=== PATIENT | male | born 1960 ===

== ENCOUNTER 2023-08-11 07:00 | Inpatient (IN) | payer OTHER ==
[2023-08-11] MEDS ORDERED: SYNTHROID200 MCG PO (08:48)
[2023-08-11] MEDS ORDERED: PROSCAR5 MG PO (08:49)
[2023-08-11] MEDS ORDERED: IBERSARTAN (08:49)
[2023-08-11] MEDS ORDERED: [UNRECOGNIZED DRUG - OTHER] (08:50)
[2023-08-11] MEDS ORDERED: LIPITOR20 MG PO (08:50)
[2023-08-11] MEDS ORDERED: CARDURA1 MG PO (08:51)
[2023-08-11] MEDS ORDERED: KLONOPIN 2MG (08:51)
[2023-08-11] MEDS ORDERED: MELOXICAM15 MG PO (08:51)
[2023-08-11 09:01] LABS: HEMATOCRIT 45.3 % (39.0-48.0); HEMOGLOBIN 15.7 g/dL (13-16.00); MEAN CELL VOLUME 89.1 fL (80.0-100.00); MEAN CORPUSCULAR HGB CONC 34.8 g/dl (32.0-36.0); PLATELET COUNT 181 K/uL (150-450); RED BLOOD COUNT 5.08 M/uL (4.00-6.00); RED CELL DISTRIBUTION WIDTH 13.8 % (11.5-14.5)
[2023-08-11 09:26] LABS: URINE APPEARANCE Clear; URINE BILIRRUBIN Negative (NEGATIVE); URINE BLOOD Trace; URINE COLOR Yellow; URINE GLUCOSE Negative (NEGATIVE); URINE LEUKOCYTE Negative; URINE NITRATE Negative; URINE PROTEIN Negative (NEGATIVE); URINE UROBILINOGEN 0.2 E.U./dl
[2023-08-11 09:26] LABS: CALCIUM 9.4 mg/dL (8.5-10.1); CREATININE SERUM 0.94 mg/dL (0.70-1.30); GFR 81.32; POTASSIUM 3.95 mEq/L (3.5-5.1)
[2023-08-11 09:27] LABS: URINE WBC 3.2 uL (0.0-23.2)
[2023-08-11 09:30] LABS: URINE BACTERIA 1.2 uL (0.0-1933); URINE EPITHELIAL CELLS 0.4 uL (0.0-38.8)
[2023-08-11 09:32] LABS: INR 1.06; PARTIAL THROMBOPLASTIN TIME 27.1 SECONDS (22.0-34.0); PROTHROMBIN TIME 11.1 SECONDS (9.0-11.5)
[2023-08-23] MEDS ORDERED: ENOXAPARIN SODIUM 40 MG/0.4 ML SYRINGE SUBCUTANEO ONE ×2 (07:20→10:00)
[2023-08-23] MEDS ORDERED: CEFAZOLIN SODIUM 1,000 MG VIAL ONE ×2 (07:20→12:58)
[2023-08-23] MEDS ORDERED: BUPROPION XL300 MG (09:11)
[2023-08-23] MEDS ORDERED: IRBESARTAN300 MG (09:11)
[2023-08-23] MEDS ORDERED: CLONAZEPAM1 MG (09:11)
[2023-08-23] MEDS ORDERED: LITHIUM CARBON300 M2 (09:11)
[2023-08-23] MEDS ORDERED: BUTALB-ACETAMI1 EAC2 (09:11)
[2023-08-23] MEDS ORDERED: HYDROCHLOROTHIA25 MG (09:11)
[2023-08-23] MEDS ORDERED: TRAZODONE HCL50 MG (09:11)
[2023-08-23] MEDS ORDERED: LEVO-T25 MCG (09:11)
[2023-08-23] MEDS ORDERED: HEMOSTATIC MATRIX 1 KIT KIT TOP ONE ×2 (09:31→10:00)
[2023-08-23] MEDS ORDERED: SURGIFLO APPLICATOR 1 EACH APPL TOP ONE ×2 (09:31→10:00)
[2023-08-23] MEDS ORDERED: LIDOCAINE HCL 1%/Epi 20ML VIAL IJ ONE (10:00)
[2023-08-23] MEDS ORDERED: CEFAZOLIN SODIUM 1,000 MG VIAL IV ONE (10:00)
[2023-08-23] MEDS ORDERED: OxyCODONE HCL/APAP UD (PERCOCET) PO PRN (11:00)
[2023-08-23] MEDS ORDERED: RINGERS SOLUTION,LACTATED 1,000 ML IV SCH (11:00)
[2023-08-23] MEDS ORDERED: ONDANSETRON HCL 2 MG/ML VIAL IV PRN (11:00)
[2023-08-23] MEDS ORDERED: KETOROLAC TROMETHAMINE 30 MG VIAL IM SCH (12:00)
[2023-08-23] MEDS ORDERED: CEFAZOLIN SODIUM 1,000 MG VIAL IV SCH (12:00)
[2023-08-23] MEDS ORDERED: KETOROLAC TROMETHAMINE 30 MG VIAL ONE (13:07)
[2023-08-23] MEDS ORDERED: GABAPENTIN 300 MG CAPSULE PO ONE (15:59)
[2023-08-23] MEDS ORDERED: GABAPENTIN 300 MG CAPSULE PO SCH (17:00)
[2023-08-23] MEDS ORDERED: OXYBUTYNIN CHLORIDE 5 MG TABLET PO SCH (19:51)
[2023-08-23] MEDS ORDERED: TRAZODONE HCL 50 MG TABLET PO SCH (21:00)
[2023-08-23] MEDS ORDERED: FAMOTIDINE/PF 20 MG/2 ML VIAL IV SCH (21:00)
[2023-08-24] MEDS ORDERED: LEVOTHYROXINE SODIUM 200 MCG TABLET PO SCH (06:00)
[2023-08-24 06:22] LABS: HEMATOCRIT 38.7 % (39.0-48.0); HEMOGLOBIN 13.3 g/dL (13-16.00); MEAN CELL VOLUME 87.8 fL (80.0-100.00); MEAN CORPUSCULAR HEMOGLOBIN 30.2 pg (27.00-32.0); MEAN CORPUSCULAR HGB CONC 34.3 g/dl (32.0-36.0); PLATELET COUNT 152 K/uL (150-450); RED BLOOD COUNT 4.41 M/uL (4.00-6.00); RED CELL DISTRIBUTION WIDTH 13.6 % (11.5-14.5)
[2023-08-24 06:52] LABS: ALBUMIN 3.1 gm/dL (3.4-5.0); CALCIUM 8.1 mg/dL (8.5-10.1); CREATININE SERUM 0.96 mg/dL (0.70-1.30); GFR 79.37; PHOSPHOROUS 2.9 mg/dL (2.5-4.9); POTASSIUM 4.35 mEq/L (3.5-5.1)
[2023-08-24] MEDS ORDERED: BUPROPION HCL 150 MG TABLET.SA PO SCH (09:00)
[2023-08-24] MEDS ORDERED: CLONAZEPAM 1 MG TABLET PO SCH (09:00)
[2023-08-24] MEDS ORDERED: BISACODYL 5 MG TABLET.EC PO SCH (09:00)
[2023-08-24] MEDS ORDERED: IRBESARTAN 300 MG TABLET PO SCH (09:00)
[2023-08-24] MEDS ORDERED: LITHIUM CARBONATE 300 MG CAPSULE PO SCH (09:00)
[2023-08-24] MEDS ORDERED: HYDROCHLOROTHIAZIDE 25 MG TABLET PO SCH (09:00)
[2023-08-24] MEDS ORDERED: ENOXAPARIN SODIUM 40 MG/0.4 ML SYRINGE SUBCUTANEO SCH (17:00)
== END 2023-08-24 14:26 | disposition home or self-care (01) | DRG 708 ==
LOC: O/R 08-23 05:35 → SURH 08-23 05:35
PROVIDERS: ADMIT Urology; ATTEND Urology
PROC: 8E0W4CZ Robotic Assisted Procedure of Trunk Region, Percutaneous Endoscopic Approach (ICD-10-PCS; 2023-08-23)
PROC: 0VT04ZZ Resection of Prostate, Percutaneous Endoscopic Approach (ICD-10-PCS; principal; 2023-08-23 07:00)
DX: N40.1 Benign prostatic hyperplasia with lower urinary tract symptoms (principal); Z20.822 Contact with and (suspected) exposure to COVID-19
CPT/HCPCS: 55867; S2900